=== PATIENT | female | born 1935 | race Caucasian/White ===

== ENCOUNTER → 2019-02-27 11:04 | Outpatient (CLI) | payer MEDICARE, OTHER, SELFPAY ==
--- NOTE | 2019-02-27 11:10 | DI.MRI.S_ITS ---
PROCEDURE: MR LUMBAR SPINE WO CON INDICATIONS: Radiculo TECHNIQUE: Noncontrast sagittal T1 spin echo and T2 fast echo, sagittal STIR, axial T1 and T2 fast spin echo through the lumbar spine. In cases with scoliosis, additional coronal T2 fast spin echo may be performed. COMPARISON: None. FINDINGS: Image quality: Excellent. Alignment and Curvature: There is grade 1 anterolisthesis L4-L5 and L5 on S1. Bone Marrow: There is an intraosseous hemangioma in L1. Degenerative endplate signal changes in the lower lumbar spine. Marrow is of otherwise normal overall signal. No acute vertebral body compression fractures. Spinal Cord: Conus medullaris terminates at the L1 level. Visualized cord demonstrates normal signal and size. Paraspinous Soft Tissues: No paravertebral masses. Liver is enlarged. There is a 1.5 cm cyst in the liver. T11-T12: Preserved disc height. Mild disc desiccation. There is diffuse posterior disc bulge. There is a perineural cyst on the left within the neural foramina, measuring 1.1 cm. The central canal is patent. Physical Fitness Teacher foraminal stenosis. Possible nerve root impingement. T12-L1: Mild loss of disc height and disc desiccation. There is diffuse posterior disc bulge. There are bilateral perineural cysts within the right lateral recess and neural foramina, measuring 1.1 cm on the right and 8 mm on the left. The central canal is patent. Physical Fitness Teacher foraminal stenosis. Possible nerve root impingement. L1-L2: Mild loss of disc height and disc desiccation. There is diffuse posterior disc bulge and disc osteophyte complex. Small posterior central annular fissure is suspected. The central canal is patent. Mild bilateral foraminal stenosis. No definitive nerve root impingement. L2-L3: Preserved disc height. Mild disc desiccation. There is diffuse posterior disc bulge and disc osteophyte complex. Small posterior central annular fissure is suspected. Mild bilateral facet arthropathy and hypertrophy of ligamentum flavum. The central canal is mildly narrowed. Mild bilateral foraminal stenosis. No definitive nerve root impingement. L3-L4: Preserved disc height. Mild disc desiccation. There is diffuse posterior disc bulge and disc osteophyte complex. Small posterior central annular fissure is suspected. Mild bilateral facet arthropathy and hypertrophy of ligamentum flavum. The central canal is mildly narrowed. [id number] bilateral foraminal stenosis. No definitive nerve root impingement. L4-L5: Mild loss of disc height and disc desiccation. There is diffuse posterior disc bulge and disc osteophyte complex. Severe bilateral facet arthropathy and hypertrophy of ligamentum flavum. The central canal is severely narrowed. There is moderate to severe narrowing of the lateral recess bilaterally.[id number] bilateral foraminal stenosis. There is cauda equina nerve root impingement. L5-S1: Moderate to severe loss of disc height and disc desiccation. There is diffuse posterior disc bulge and disc osteophyte complex. Severe left and moderate right facet arthropathy. The central canal is mildly narrowed. Moderate left and mild right foraminal stenosis. There is no definitive nerve root impingement. IMPRESSION: 1. Multilevel degenerative disc disease and facet arthropathy as described. 2. Severe central canal stenosis at L4-L5. 3. Multilevel foraminal stenosis as described. Dictated by: Janusz Boyd M.D. on 02/27/2019 at 14:09 Approved by: Janusz Boyd M.D. on 02/27/2019 at 18:26
== END ==
PROVIDERS: PCP Family Medicine; Visit Provider Family Medicine
DX: M51.16 Intervertebral disc disorders with radiculopathy, lumbar region (principal); M51.17 Intervertebral disc disorders with radiculopathy, lumbosacral region; M47.26 Other spondylosis with radiculopathy, lumbar region; M47.27 Other spondylosis with radiculopathy, lumbosacral region; M48.061 Spinal stenosis, lumbar region without neurogenic claudication; M48.07 Spinal stenosis, lumbosacral region
CPT/HCPCS: 72148

== ENCOUNTER → 2019-04-02 07:44 | Outpatient (CLI) | payer MEDICARE, OTHER, SELFPAY ==
[2019-04-02 08:34] LABS: Alanine Aminotransferase 25 IU/L (<35); Albumin 4.4 g/dL (3.5-5.0); Albumin Globulin Ratio 1.8 (1.0-2.8); Alkaline Phosphatase 66 U/L (38-126); Aspartate Aminotransferase 44 IU/L (14-36); Bilirubin Total 0.8 mg/dL (0.2-1.3); Blood Urea Nitrogen 16 mg/dL (7-17); Calcium 9.3 mg/dL (8.4-10.2); Carbon Dioxide 30 mmol/L (22-32); Chloride 100 mmol/L (98-107); Cholesterol 181 mg/dL (140-199); Estimated Glomerular Filt Rate > 60.0 mL/min (>60); Globulin 2.5 g/dL (1.7-4.1); Glucose 95 mg/dL (80-110); HDL Cholesterol 76 mg/dL (40-60); HEMOLYSIS < 15 (0-50); LDL Cholesterol Calculated 82 mg/dL (<100); Potassium 4.1 mmol/L (3.4-5.1); Sodium 139 mmol/L (137-145); Total Protein 6.9 g/dL (6.3-8.2); Triglycerides 115 mg/dL (35-150)
[2019-04-02 08:35] LABS: C-Reactive Protein Quant < 0.5 mg/dL (<1.0)
[2019-04-02 09:09] LABS: TSH w/ Reflex to FT4 3.34 uIU/mL (0.47-4.68)
[2019-04-02 09:22] LABS: Add Manual Diff / Slide Review NO; Basophils Absolute Auto 100 /uL (0-100); Basophils Percent Auto 1.1 % (0-2); Eosinophils Absolute Auto 0 /uL (0-450); Eosinophils Percent Auto 0.8 % (2-4); Hematocrit 39.9 % (36-46); Hemoglobin 12.7 g/dL (12.0-16.0); Lymphocytes Absolute Auto 1300 /uL (1100-4500); Lymphocytes Percent Auto 24.2 % (25-40); Mean Corpuscular HGB Conc 31.8 % (30-36); Mean Corpuscular Hemoglobin 23.8 PG (26-34); Mean Corpuscular Volume 74.9 fL (80-100); Monocytes Absolute Auto 400 /uL (0-900); Monocytes Percent Auto 7.6 % (3-14); Neutrophils Absolute Auto 3500 /uL (1500-7000); Neutrophils Percent Auto 66.3 % (50-75); Platelet Count 215 X10^3/uL (150-400); Red Blood Cell Count 5.33 X10^6/uL (4.0-5.2); Red Cell Distribution Width 15.4 % (11.6-14.8); White Blood Cell Count 5.3 X10^3/uL (4.5-11.0)
[2019-04-02 11:28] LABS: HEMOLYSIS < 15 (0-50); Iron 106 ug/dL (37-170)
[2019-04-02 11:39] LABS: Percent Iron Saturation 32 % (15-50); Total Iron Binding Capacity 335 ug/dL (265-497); Transferrin 278 mg/dL (206-381)
[2019-04-02 12:04] LABS: Ferritin 29.8 ng/mL (11.1-264)
[2019-04-02 12:17] LABS: Vitamin B12 771 pg/mL (239-931)
== END ==
PROVIDERS: PCP Family Medicine; Visit Provider Family Medicine
DX: M19.90 Unspecified osteoarthritis, unspecified site (principal); R29.898 Other symptoms and signs involving the musculoskeletal system; R53.83 Other fatigue; R63.4 Abnormal weight loss; T78.40XA Allergy, unspecified, initial encounter; Z86.79 Personal history of other diseases of the circulatory system; D64.9 Anemia, unspecified
CPT/HCPCS: 36415; 80053; 80061; 82607; 82728; 83540; 83550; 84443; 85025; 86140

== ENCOUNTER → 2019-05-20 18:15 | Outpatient (CLI) | payer MEDICARE, OTHER, SELFPAY | PROVIDERS: PCP Family Medicine; Visit Provider Orthopaedic Surgery | DX: G95.9 Disease of spinal cord, unspecified (principal) ==

== ENCOUNTER → 2019-06-10 09:52 | Outpatient (CLI) | payer MEDICARE, MEDICAID, SELFPAY ==
--- NOTE | 2019-06-10 | DI.MRI.S_ITS ---
PROCEDURE: MR CERVICAL SPINE WO CON INDICATIONS: Disease of spinal cord, unspecified TECHNIQUE: Noncontrast sagittal T1 spin echo and T2 fast spin echo, sagittal STIR, foraminal oblique sagittal T2 fast spin echo, and axial gradient echo or T2 fast spin echo through the cervical spine. COMPARISON: None. FINDINGS: Image quality: Excellent. Alignment and Curvature: There is trace C4-C5 and C7-T1 anterolisthesis. There is trace C5-C6 retrolisthesis. Bone Marrow: Mild reactive endplate changes noted adjacent to the C5-C6 disc. Spinal Cord: Visualized spinal cord has normal size and signal. No cerebellar tonsillar herniation. Paraspinous Soft Tissues: No paravertebral masses. Prevertebral soft tissues are normal in thickness. C2-C3: Loss of disc signal and height. No central stenosis. No neural foraminal narrowing. No neural compression. C3-C4: Loss of disc signal and height. Mild, diffuse disc bulge. No central stenosis. Mild right and moderate left facet hypertrophy. Moderate bilateral uncovertebral joint hypertrophy. Moderate right and severe left neural foraminal narrowing with compression of the exiting left C4 nerve root. C4-C5: Loss of disc signal. Mild, diffuse disc bulge. No central stenosis. Mild right and moderate left facet hypertrophy. Mild bilateral uncovertebral joint hypertrophy. Mild right and moderate left neural foraminal narrowing. No neural compression. C5-C6: Loss of disc signal and height. Mild, diffuse disc bulge. Mild narrowing of the central canal. Mild bilateral facet hypertrophy. Moderate bilateral uncovertebral joint hypertrophy. Severe bilateral neural foraminal narrowing with compression of the exiting C6 nerve roots. C6-C7: Loss of disc signal and slight loss of disc height. Minimal, diffuse disc bulge. No central stenosis. Mild right and moderate left facet hypertrophy. Mild bilateral uncovertebral joint hypertrophy. Moderate bilateral neural foraminal narrowing. No neural compression. C7-T1: Loss of disc signal. Mild, diffuse disc bulge. No central stenosis. No neural foraminal narrowing. No neural compression. IMPRESSION: 1. Multilevel degenerative disc disease. 2. Multilevel facet and uncovertebral arthropathy. 3. Mild C5-C6 central canal nerve. 4. Severe bilateral C5-C6 neural foraminal narrowing. Moderate right and severe left C2-C3 neural foraminal narrowing. Moderate bilateral C3-C4 and C6-C7 neural foraminal narrowing. Mild right and moderate left C4 and C5 neural foraminal narrowing. 5. Compression of the exiting left C4 nerve root and the exiting bilateral C6 nerve roots secondary to neural foraminal narrowing. Dictated by: Ivanna Christensen MD, PhD on 06/10/2019 at 14:24 Approved by: Ivanna Christensen MD, PhD on 06/10/2019 at 15:47
== END ==
PROVIDERS: PCP Family Medicine; Referring Provider Orthopaedic Surgery; Visit Provider Orthopaedic Surgery
DX: G95.9 Disease of spinal cord, unspecified (principal); M50.31 Other cervical disc degeneration, high cervical region; M47.812 Spondylosis without myelopathy or radiculopathy, cervical region; M48.02 Spinal stenosis, cervical region
CPT/HCPCS: 72141

== ENCOUNTER 2019-07-01 10:07 | Emergency (ER) | payer MEDICARE, MEDICAID, SELFPAY ==
[2019-07-01 10:10] VITALS: BP 94/53; PULSE 86; RESP 30; TEMP 36.4; O2SAT 96; BMI 21.8
[2019-07-01 10:11] VITALS: BP 94/53; PULSE 90; RESP 16; O2SAT 96
--- NOTE | 2019-07-01 10:15 | DI.RAD.S_ITS ---
PROCEDURE: XR CHEST 1V INDICATIONS: chest pain TECHNIQUE: One view of the chest was acquired. COMPARISON: [facility] Outside Film, RG, CHEST 2VW, 05/18/2019, 21:59. FINDINGS: Surgical changes and devices: None. Lungs and pleura: There is blunting of the costophrenic angles bilaterally, left greater than right. Mild increased vascularity. Mediastinum: Mediastinal contours appear normal. Heart size is enlarged. Bones and chest wall: No suspicious bony lesions. Overlying soft tissues appear unremarkable. IMPRESSION: Costophrenic angle blunting likely related to trace effusions, left greater than right. Mild increased vascularity is present suggestive of edema. Dictated by: Mariela Banuelos M.D. on 07/01/2019 at 11:07 Approved by: Mariela Banuelos M.D. on 07/01/2019 at 11:09
--- NOTE | 2019-07-01 10:21 | ED_ITS ---
HPI - Chest Pain General Chief Complaint: Chest Pain Stated Complaint: Pain in middle of her chest. Time Seen by Provider: 07/01/19 10:21 Source: patient Mode of arrival: Wheelchair Limitations: no limitations History of Present Illness HPI narrative: 83-year-old woman with a history of aortic valvular disease and I HSS began having chest pain, central chest associated with diaphoresis and some dyspnea last night. She came to a primary care office this morning for a follow-up visit only and was complaining of chest pain in the lobby and then slumped in her chair. She was brought to the emergency room where she continues to complain of chest pain. She is pale, diaphoretic, dyspneic with O2 saturations in the upper 90s and appears acutely ill. Continues to complain of severe central chest pain and while were talking goes into bigeminy for approximately a minute a half and then converts back to sinus rhythm. Initial EKG is reviewed and suggests ST elevation V4, 5, 6, and in lead II. Given her acute clinical scenario with chest pain and increasing hemodynamic instability STEMI protocols were initiated at 10:25 a.m.. I spoke with Dr. López, emergency room physician at [facility] and have initiated stat ALS transport Related Data Previous Rx's Medication Instructions Recorded Handicap Placard #1 ea 02/19/19 calcitonin (salmon) 200 1 spray INTRANASAL (ALT) DAILY 05/21/19 unit/actuation nasal spray #3.7 ml Allergies Allergy/AdvReac Type Severity Reaction Status Date / Time Penicillins Allergy unknown Verified 07/01/19 10:15 Sulfa (Sulfonamide Allergy Unknown Verified 07/01/19 10:15 Antibiotics) Review of Systems Review of Systems Narrative: Chest pain, nausea, diaphoresis without diarrhea, vomiting, abdominal pain or fevers over the course of the evening. Admitted to [facility] in [place] at the end of April of this year for similar complaints, was told that it was a pinched nerve and stress testing was not felt to be required at that time. I do not have access to those records for EKGs Patient History Medical History Allergies (Chronic) Cardiac arrhythmia (Chronic) Chicken pox (Resolved) Compression fracture of T11 vertebra (Acute) Fall (Inactive ~2017) History of IHSS (Chronic ~2012) Osteoarthritis (Chronic ~1976) Family History Mother History of heart disease Social History Smoking Status: Never smoker Smoking Status: Never smoker alcohol intake frequency: holidays/special occasions only Substance Use Type: does not use Exam Narrative Exam Narrative: General: Frail-appearing older woman in obvious distress she is able to speak in full sentences but complaining of severe central chest pain, diaphoretic and pale HEENT: Moist mucous membranes Neck: Neck is supple without cervical adenopathy Chest: No rales or rhonchi with full and symmetrical breath movement Cardiac: 5/6 murmur radiating across the entire precordium and through to her back Abdomen: Soft nontender Skin: Pale, mildly diaphoretic Neurologic: Grossly nonfocal she does have an ankle-foot orthosis in place on the right foot Psych: Fully alert, good insight appropriate questions Initial Vital Signs Initial Vital Signs: Vital Signs Temperature 97.5 F L 07/01/19 10:10 Pulse Rate 86 07/01/19 10:10 Respiratory Rate 30 H 07/01/19 10:10 Blood Pressure 94/53 L 07/01/19 10:10 Pulse Oximetry 96 07/01/19 10:10 Course Course Course Narrative: STEMI protocol activated 1025 Orders Ordered: ED Orders 07/01/19 10:15 XR chest 1V Stat Complete Blood Count AUTO DIFF Stat Comprehensive Metabolic Panel Stat Lipase Stat Partial Thromboplastin Time Stat Prothrombin Time INR Stat Troponin & CK Cardiac Panel Stat 07/01/19 10:16 EKG-12 Lead Stat Vital Signs Vital signs: Vital Signs - 8 hr 07/01/19 10:47 Pulse Rate 86 Respiratory Rate 18 Blood Pressure [Left Arm] 94/46 L Pulse Oximetry 96 MDM - Chest Pain Medical Records Data Attestation: I reviewed the patient's medical records. Lab Data Attestation: I reviewed the patient's lab results. Result diagrams: 07/01/19 10:15 07/01/19 10:15 Labs: Lab Results 07/01/19 07/01/19 07/01/19 Range/Units 10:15 10:15 10:15 WBC 5.5 (4.5-11.0) X10^3/uL RBC 4.45 (4.0-5.2) X10^6/uL Hgb 12.1 (12.0-16.0) g/dL Hct 36.3 (36-46) % MCV 81.5 (80-100) fL MCH 27.2 (26-34) PG MCHC 33.3 (30-36) % RDW 15.4 H (11.6-14.8) % Plt Count 281 (150-400) X10^3/uL Neut % (Auto) 73.5 (50-75) % Lymph % (Auto) 15.9 L (25-40) % Cochran % (Auto) 10.0 (3-14) % Eos % (Auto) 0.2 L (2-4) % Baso % (Auto) 0.4 (0-2) % Neut # (Auto) 4000 (0196-5650) /uL Lymph # (Auto) 900 L (4328-0373) /uL Cochran # (Auto) 500 (0-900) /uL Eos # (Auto) 0 (0-450) /uL Baso # (Auto) 0 (0-100) /uL PT 11.3 (10.1-12.7) SECONDS INR 1.0 (0.9-1.3) APTT 28 (26.4-36.2) SECONDS Sodium 133 L (137-145) mmol/L Potassium (3.4-5.1) mmol/L Chloride 94 L (98-107) mmol/L Carbon Dioxide 35 H (22-32) mmol/L BUN 19 H (7-17) mg/dL Creatinine 0.4 L (0.52-1.04) mg/dL Estimated GFR > 60.0 (>60) mL/min BUN/Creatinine Ratio 47.5 H (6-22) Glucose 127 H (80-110) mg/dL Calcium 9.3 (8.4-10.2) mg/dL Total Bilirubin 1.1 (0.2-1.3) mg/dL AST (14-36) IU/L ALT 30 (<35) IU/L Alkaline Phosphatase 46 (38-126) U/L Total Creatine Kinase 146 H (30-135) U/L CK-MB (CK-2) 6.79 H (<2.37) ng/mL CK-MB (CK-2) Rel Index 4.7 (1.5-5.0) % Troponin I (0.01-0.034) ng/mL Total Protein (6.3-8.2) g/dL Albumin (3.5-5.0) g/dL Globulin Not Reportable Albumin/Globulin Ratio Not Reportable Lipase 235 (23-300) U/L Core Measures AMI core measures followed: Yes MDM Narrative Medical decision making narrative: With clinical presentation including the pale, diaphoresis, worsening hypertension, moderately symptomatic run of bigeminy back to sinus rhythm and ST elevation laterally in be 456 possibly inferior lateral with slight elevation in lead II, initial working diagnosis is STEMI and she is transferred to [facility] for definitive care. Will make sure that additional diagnostic studies and labs are faxed to them while she is being transported At time of transport she remains pale diaphoretic hypotensive alert, appropriate and still complaining of central chest pain Critical Care Time Critical Care Time Critical Care Time: Yes Total Critical Care Time: 33 Attestation: Critical Care Time [33] minutes: Critical care time is separate from other billable procedures. This critical ca re time includes consultation with family and other consulting doctors, review of records, and interpretation of data from labs, EKGs and imaging as well as managements of acute myocardial infarction with concern for cardiovascular collapse Discharge Plan Departure Patient Disposition: [facility] Clinical Impression: ST elevation (STEMI) myocardial infarction Qualifiers: Involved coronary artery: unspecified coronary artery Qualified Code(s): I21.3 - ST elevation (STEMI) myocardial infarction of unspecified site Discharge Date/Time: 07/01/19 10:45 Prescriptions: No Action (DME) Handicap Placard Qty: 1 RF: 0 calcitonin (salmon) 200 unit/actuation spray,non-aerosol 1 spray intranasal (ALT) DAILY Qty: 3.7 RF: 1 Referrals: Tina Stout DO [Primary Care Provider] -
[2019-07-01 10:29] LABS: Add Manual Diff / Slide Review NO; Basophils Absolute Auto 0 /uL (0-100); Basophils Percent Auto 0.4 % (0-2); Eosinophils Absolute Auto 0 /uL (0-450); Eosinophils Percent Auto 0.2 % (2-4); Hematocrit 36.3 % (36-46); Hemoglobin 12.1 g/dL (12.0-16.0); Lymphocytes Absolute Auto 900 /uL (1100-4500); Lymphocytes Percent Auto 15.9 % (25-40); Mean Corpuscular HGB Conc 33.3 % (30-36); Mean Corpuscular Hemoglobin 27.2 PG (26-34); Mean Corpuscular Volume 81.5 fL (80-100); Monocytes Absolute Auto 500 /uL (0-900); Neutrophils Absolute Auto 4000 /uL (1500-7000); Neutrophils Percent Auto 73.5 % (50-75); Platelet Count 281 X10^3/uL (150-400); Red Blood Cell Count 4.45 X10^6/uL (4.0-5.2); Red Cell Distribution Width 15.4 % (11.6-14.8); White Blood Cell Count 5.5 X10^3/uL (4.5-11.0)
[2019-07-01 10:34] LABS: Prothrombin Time 11.3 SECONDS (10.1-12.7)
[2019-07-01] MEDS: ASPIRIN 81 MG CHEW TAB 324 MG (10:34)
[2019-07-01 10:37] LABS: PTT Partial Thromboplastin Tim 28 SECONDS (26.4-36.2)
[2019-07-01 10:47] VITALS: BP 94/46; PULSE 86; RESP 18; O2SAT 96
[2019-07-01 10:55] LABS: Creatine Kinase 146 U/L (30-135)
[2019-07-01 10:56] LABS: BUN Creatinine Ratio 47.5 (6-22); Blood Urea Nitrogen 19 mg/dL (7-17); Calcium 9.3 mg/dL (8.4-10.2); Carbon Dioxide 35 mmol/L (22-32); Chloride 94 mmol/L (98-107); Estimated Glomerular Filt Rate > 60.0 mL/min (>60); Glucose 127 mg/dL (80-110); Sodium 133 mmol/L (137-145)
[2019-07-01 10:57] LABS: Alanine Aminotransferase 30 IU/L (<35); Alkaline Phosphatase 46 U/L (38-126); Bilirubin Total 1.1 mg/dL (0.2-1.3); Lipase 235 U/L (23-300)
[2019-07-01 10:58] LABS: HEMOLYSIS 113 (0-50)
[2019-07-01 11:01] LABS: CKMB % Relative Index 4.7 % (1.5-5.0); Creatine Kinase MB 6.79 ng/mL (<2.37)
== END 2019-07-01 10:45 | disposition short-term general hospital (02) ==
PROVIDERS: Emergency Provider Emergency Medicine; PCP Family Medicine; Referring Provider Family Medicine
DX: I21.3 ST elevation (STEMI) myocardial infarction of unspecified site (principal); I10 Essential (primary) hypertension
CPT/HCPCS: 36415; 71045; 80053; 82550; 82553; 83690; 84484; 85025; 85610; 85730; 93005; 99284; 99291